=== PATIENT | female | born 1985 | race Caucasian/White ===

== ENCOUNTER 2017-08-02 01:00 | Emergency (ER) | payer OTHER ==
[2017-08-02] MEDS ORDERED: NS 1,000 ML IV ONE (01:07)
[2017-08-02] MEDS ORDERED: ONDANSETRON 4 MG/2 ML VIAL IVP ONE (01:07)
[2017-08-02 01:08] VITALS: RESP 18
--- NOTE | 2017-08-02 01:18 | EDPHY ---
H & P Stated Complaint: per family pt stating SI Source: Patient, Family - Medical/Surgical History Hx Asthma: Yes Hx Chronic Respiratory Disease: No Hx Diabetes: No Hx Cardiac Disease: No Hx Renal Disease: No Hx Cirrhosis: No Hx Alcoholism: Yes Hx HIV/AIDS: No Hx Splenectomy or Spleen Trauma: No Other PMH: depression; cutter, asthma - Social History Smoking Status: Light smoker HPI/ROS: HPI CHIEF COMPLAINT: SI, ETOH INTOXICATION HISTORY OF PRESENT ILLNESS: Patient 32-year-old female brought in by private vehicle with her father and boyfriend. She has been drinking a large amount of alcohol this evening she made multiple comments about wanting to kill herself to her dad and boyfriend. According to the boyfriend she had a work review the did not go very well she became upset started drinking tonight. She denies ingesting anything or try to harm herself. Her dad and her boyfriend had a hard time controlling her tonight so they brought her to the emergency room. Upon arrival to the emergency room the patient is intoxicated with alcohol. She is smiling and laughing. She states to me that what her boyfriend and father saying is untrue. At this time the patient be put on a detain her till she tish up. And will re -evaluate her mental state. Past Medical History: Depression, anxiety Past Surgical History: No recent surgical history Social History: Alcohol this evening denies illicit drugs or tobacco. Family History: Noncontributory ROS REVIEW OF SYSTEMS: A comprehensive 10 point review of systems is otherwise negative aside from elements mentioned in the history of present illness. Exam Constitutional laughing, giggling, tearful, intoxicated with alcohol triage nursing summary reviewed, vital signs reviewed, awake/alert. Eyes normal conjunctivae and sclera, EOMI, PERRLA. HENT normal inspection, atraumatic, moist mucus membranes, no epistaxis, neck supple/ no meningismus, no raccoon eyes. Respiratory clear to auscultation bilaterally, normal breath sounds, no respiratory distress, no wheezing. Cardiovascular rate normal, regular rhythm, no murmur, no edema, distal pulses normal. Gastrointestinal soft, non-tender, no rebound, no guarding, normal bowel sounds, no distension, no pulsatile mass. Genitourinary no CVA tenderness. Musculoskeletal no midline vertebral tenderness, full range of motion, no calf swelling, no tenderness of extremities, no meningismus, good pulses, neurovascularly intact. Skin pink, warm, & dry, no rash, skin atraumatic. Neurologic awake, alert and oriented x 3, AAOx3, moves all 4 extremities equally, motor intact, sensory intact, CN II-XII intact, normal cerebellar, normal vision, normal speech. Psychiatric laughing and playing. Heme/Lymph/Immune no lymphadenopathy. Differential Diagnosis: Includes but is not limited to in a particular order acute alcohol intoxication, mood disorder, bipolar disorder suicidal ideation, depression, anxiety Medical Decision Making: Plan for this patient blood draw for medical clearance. Will patient will need to be re-evaluated mental health evaluation once sober. Detain her at this time. Re-evaluation: 0412: Labs reviewed. Dehydrated. Will give p.o. fluids. Additionally alcohol level 240. Positive for marijuana. 0558: Patient resting. On medical detainer. Intoxicated with alcohol with suicidal ideation. Once patient is sober will need to re-evaluate. 0700: Patient signed over to Dr. Newton at 7am Shift change. (Silver Euceda) Constitutional: Initial Vital Signs Heart Rate 74 08/02/17 01:05 Respiratory Rate 18 08/02/17 01:05 Blood Pressure 123/74 H 08/02/17 01:05 O2 Sat (%) 97 08/02/17 01:05 O2 Delivery Mode Room Air Allergies/Adverse Reactions: No Known Allergies Allergy (Verified 08/02/17 01:08) Home Medications: Medication Instructions Recorded Albuterol [Proventil Inhaler HFA 1 - 2 puffs IH Q4H PRN 03/04/15 (*)] Zolpidem Tartrate [Ambien 5MG (*)] 10 mg PO HS 03/04/15 Pantoprazole Sodium [Protonix] 40 mg PO BID #60 tab 03/07/15 Medical Decision Making Other Provider: Patient has been evaluated by mental health. At 0740, Travon recommends patient be discharged home. The patient is now sober and not suicidal. He feels she is low-risk for self-harm and she has adequate support as an outpatient. (Cordell Newton) - Data Points Laboratory Results: Laboratory Results 08/02/17 01:30 08/02/17 01:30 08/02/17 08/02/17 08/02/17 01:30 01:30 01:30 WBC RBC Hgb Hct MCV MCH MCHC RDW Plt Count MPV Neut % (Auto) Lymph % (Auto) Duval % (Auto) Eos % (Auto) Baso % (Auto) Nucleat RBC Rel Count Absolute Neuts (auto) Absolute Lymphs (auto) Absolute Monos (auto) Absolute Eos (auto) Absolute Basos (auto) Absolute Nucleated RBC Immature Gran % Immature Gran # Sodium 149 mEq/L H mEq/L (134-144) Potassium 4.1 mEq/L mEq/L (3.5-5.2) Chloride 115 mEq/L H mEq/L (97-110) Carbon Dioxide 15 mEq/l L mEq/l (22-31) Anion Gap 19 mEq/L H mEq/L (8-16) BUN 5 mg/dL L mg/dL (7-23) Creatinine 0.7 mg/dL mg/dL (0.6-1.0) Estimated GFR > 60 Glucose 88 mg/dL mg/dL (70-100) Calcium 9.5 mg/dL mg/dL (8.5-10.4) Beta HCG, Qual NEGATIVE Urine Opiates Screen NEGATIVE (NEGATIVE) Urine Barbiturates NEGATIVE (NEGATIVE) Ur Phencyclidine Scrn NEGATIVE (NEGATIVE) Ur Amphetamine Screen NEGATIVE (NEGATIVE) U Benzodiazepines Scrn NEGATIVE (NEGATIVE) Urine Cocaine Screen NEGATIVE (NEGATIVE) U Marijuana (THC) Screen NON-NEGATIVE H (NEGATIVE) Ethyl Alcohol 240 mg/dL H mg/dL (0-10) 08/02/17 01:30 WBC 14.91 10^3/uL H 10^3/uL (3.80-9.50) RBC 4.31 10^6/uL 10^6/uL (4.18-5.33) Hgb 14.2 g/dL g/dL (12.6-16.3) Hct 40.0 % % (38.0-47.0) MCV 92.8 fL fL (81.5-99.8) MCH 32.9 pg pg (27.9-34.1) MCHC 35.5 g/dL g/dL (32.4-36.7) RDW 13.1 % % (11.5-15.2) Plt Count 264 10^3/uL 10^3/uL (150-400) MPV 10.1 fL fL (8.7-11.7) Neut % (Auto) 58.1 % % (39.3-74.2) Lymph % (Auto) 27.5 % % (15.0-45.0) Duval % (Auto) 8.6 % % (4.5-13.0) Eos % (Auto) 4.1 % % (0.6-7.6) Baso % (Auto) 0.9 % % (0.3-1.7) Nucleat RBC Rel Count 0.0 % % (0.0-0.2) Absolute Neuts (auto) 8.67 10^3/uL H 10^3/uL (1.70-6.50) Absolute Lymphs (auto) 4.10 10^3/uL H 10^3/uL (1.00-3.00) Absolute Monos (auto) 1.28 10^3/uL H 10^3/uL (0.30-0.80) Absolute Eos (auto) 0.61 10^3/uL H 10^3/uL (0.03-0.40) Absolute Basos (auto) 0.13 10^3/uL H 10^3/uL (0.02-0.10) Absolute Nucleated RBC 0.00 10^3/uL 10^3/uL (0-0.01) Immature Gran % 0.8 % % (0.0-1.1) Immature Gran # 0.12 10^3/uL H 10^3/uL (0.00-0.10) Sodium Potassium Chloride Carbon Dioxide Anion Gap BUN Creatinine Estimated GFR Glucose Calcium Beta HCG, Qual Urine Opiates Screen Urine Barbiturates Ur Phencyclidine Scrn Ur Amphetamine Screen U Benzodiazepines Scrn Urine Cocaine Screen U Marijuana (THC) Screen Ethyl Alcohol Departure - Departure Disposition: Home, Routine, Self-Care Clinical Impression: Suicidal ideation Alcohol intoxication Qualifiers: Complication of substance-induced condition: uncomplicated Qualified Code(s): F10.920 - Alcohol use, unspecified with intoxication, uncomplicated Condition: Good Instructions: Abuse of Alcohol (ED) Additional Instructions: Please refrain from abusing alcohol. Return to the emergency department immediately for fever, vomiting, confusion, headache, abdominal pain or other worsening of condition. Followup with your primary care physician within 72 hours for reevaluation. Referrals: Patient,NotPresent [Unknown] - As per Instructions
[2017-08-02 01:38] LABS: % IMMATURE GRANULYOCYTES 0.8 % (0.0-1.1); ABSOLUTE IMMATURE GRANULOCYTES 0.12 10^3/uL (0.00-0.10); ADD DIFF? NO; ADD MORPH? NO; ADD SCAN? NO; ATYPICAL LYMPHOCYTE FLAG 20 (0-99); FRAGMENT RBC FLAG 0 (0-99); HEMOGLOBIN 14.2 g/dL (12.6-16.3); LEFT SHIFT FLG 0 (0-99); LIPEMIA HEMOLYSIS FLAG 90 (0-99); MEAN CELL HEMOGLOBIN 32.9 pg (27.9-34.1); MEAN CELL HEMOGLOBIN CONCENTR. 35.5 g/dL (32.4-36.7); MEAN CELL VOLUME 92.8 fL (81.5-99.8); MEAN PLATELET VOLUME 10.1 fL (8.7-11.7); PLATELET CLUMPS FLAG 0 (0-99); PLATELET COUNT 264 10^3/uL (150-400); RED BLOOD CELL COUNT 4.31 10^6/uL (4.18-5.33); RED CELL DISTRIBUTION WIDTH 13.1 % (11.5-15.2)
[2017-08-02 01:56] LABS: ANION GAP 19 mEq/L (8-16); CALCIUM 9.5 mg/dL (8.5-10.4); CARBON DIOXIDE 15 mEq/l (22-31); CHLORIDE 115 mEq/L (97-110); CREATININE 0.7 mg/dL (0.6-1.0); ETHANOL SERUM 240 mg/dL (0-10); GLOMERULAR FILTRATION RATE > 60; GLUCOSE 88 mg/dL (70-100); POTASSIUM 4.1 mEq/L (3.5-5.2); SODIUM 149 mEq/L (134-144)
[2017-08-02 08:15] VITALS: BP 90/53; PULSE 59; TEMP 97.9; O2SAT 94
== END 2017-08-02 08:15 | disposition home or self-care (01) ==
DX: R45.851 Suicidal ideations (principal); F10.920 Alcohol use, unspecified with intoxication, uncomplicated; J45.909 Unspecified asthma, uncomplicated; F17.200 Nicotine dependence, unspecified, uncomplicated
CPT/HCPCS: 80305; G0480